=== PATIENT | female | born 1985 | race Caucasian/White ===

== ENCOUNTER 2017-09-05 10:58 | Emergency (ER) | payer OTHER ==
[~2017-09-05] VITALS: Ht 160 cm; Wt 53.0 kg
[~2017-09-05 10:58] MED LIST: ESOM40CA PO
[2017-09-05] MEDS ORDERED: valproate sod inj 500 MG in normal saline 100ml IV soln 95 ML IV ONE (14:30)
[2017-09-05] MEDS ORDERED: proCHLORperazine 10 MG/2 ml inj IV ONE (14:30)
[2017-09-05] MEDS ORDERED: diphenhydrAMINE 50 mg/ml inj IV ONE (14:30)
[2017-09-05] MEDS ORDERED: LORazepam 2 mg/ml vial IV ONE (14:30)
[2017-09-05] MEDS ORDERED: diazepam 5mg tablet PO ONE (14:30)
[2017-09-05] MEDS ORDERED: HYDROcodone/acetaminophen 10/325mg tab PO ONE (18:30)
[2017-09-05] MEDS ORDERED: ketorolac trometh. 30mg/ml inj. IV ONE (18:40)
[2017-09-05 18:55] VITALS: BP 140/90
[2017-09-05] MEDS ORDERED: PROC-8 PO (19:01)
== END 2017-09-05 18:57 | disposition home or self-care (01) ==
LOC: ER 10:59
DX: G43.909 Migraine, unspecified, not intractable, without status migrainosus (principal); I10 Essential (primary) hypertension; Z88.2 Allergy status to sulfonamides
CPT/HCPCS: 93005; 96365; 96375; 99284; J0780; J1200; J1885; J2060; J7030

== ENCOUNTER 2021-12-30 21:26 | Emergency (ER) | payer BC, OTHER ==
[~2021-12-30] VITALS: Ht 160 cm; Wt 54.5 kg
[~2021-12-30 21:26] MED LIST changes: +PROC-8 PO
[2021-12-30] MEDS ORDERED: cloNIDine 0.1 mg tablet PO STA (21:54)
[2021-12-30 23:11] LABS: BASOPHILS % (AUTO) 0.3 % (0-1); EOSINOPHILS % (AUTO) 0 % (0-6); HEMATOCRIT 39.9 % (35.0-45.0); LYMPHOCYTES % (AUTO) 16.6 % (21-51); MEAN CORPUSCULAR HEMOGLOBIN 24.2 PG (27.0-31.0); MEAN CORPUSCULAR HGB CONC 32.5 g/dL (33.0-36.5); MEAN CORPUSCULAR VOLUME 74.5 FL (78-98); MEAN PLATELET VOLUME 6.7 FL (7.4-10.4); MONOCYTES # (AUTO) 0.3 X10'3 (0-0.9); MONOCYTES % (AUTO) 2.6 % (2-12); NEUTROPHILS # (AUTO) 9.6 X10'3 (1.8-7.7); NEUTROPHILS % (AUTO) 80.5 % (42-75); PLATELET COUNT 488 X10'3 (140-440); RED BLOOD COUNT 5.35 X10'6 (4.20-5.60); RED CELL DISTRIBUTION WIDTH 14.9 % (11.5-14.5); WHITE BLOOD COUNT 11.9 X10'3 (4.5-11.0)
[2021-12-30 23:42] LABS: ALANINE AMINOTRANSFERASE 18 U/L (12-78); ALBUMIN 4.6 G/DL (3.4-5.0); ALKALINE PHOSPHATASE 75 IU/L (46-116); ANION GAP 18 (8-16); ASPARTATE AMINO TRANSFERASE 22 U/L (10-37); BILIRUBIN,TOTAL 0.3 MG/DL (0.1-1.0); BLOOD UREA NITROGEN 3 MG/DL (7-18); BUN/CREATININE RATIO 3.5 (6.6-38.0); CALCIUM 8.6 MG/DL (8.5-10.1); CHLORIDE 104 MMOL/L (99-107); CREATININE 0.85 MG/DL (0.40-0.90); GLUCOSE 99 MG/DL (70-104); POTASSIUM 3.6 MMOL/L (3.5-5.1); SODIUM 142 MMOL/L (135-145); TOTAL CARBON DIOXIDE 20.4 MMOL/L (24-32); eGFR 77 ML/MIN
[2021-12-31] MEDS ORDERED: cloNIDine 0.1 mg tablet PO STA (00:14)
[2021-12-31] MEDS ORDERED: hyDRALAzine 10mg tablet PO SCH (01:30)
--- NOTE | 2021-12-31 01:44 | NUR ---
bp 140/102 hydralazine held. aware
[2021-12-31 02:01] VITALS: BP 137/99
[2021-12-31 02:51] LABS: URINE AMPHETAMINE SCREEN NEGATIVE (Neg); URINE BARBITUATE SCREEN NEGATIVE (Neg); URINE BENZODIAZEPINES SCREEN NEGATIVE (Neg); URINE CANNABINOID SCREEN NEGATIVE (Neg); URINE COCAINE SCREEN NEGATIVE (Neg); URINE METHADONE SCREEN NEGATIVE (Neg); URINE OPIATE SCREEN NEGATIVE (Neg); URINE PHENCYCLIDINE SCREEN NEGATIVE (Neg)
== END 2021-12-31 02:05 ==
LOC: ER 21:26
DX: I16.0 Hypertensive urgency (principal); R07.89 Other chest pain; G43.909 Migraine, unspecified, not intractable, without status migrainosus; I10 Essential (primary) hypertension; Z87.440 Personal history of urinary (tract) infections; Z88.0 Allergy status to penicillin; Z79.899 Other long term (current) drug therapy
CPT/HCPCS: 36415; 80053; 80305; 82570; 83735; 83835; 83880; 84484; 84585; 85025; 93005; 99285